=== PATIENT | male | born 1950 ===

== ENCOUNTER 2024-05-28 13:28 | Outpatient (RCR) | payer MEDICARE, SELFPAY | END 2024-06-15 23:59 | disposition home or self-care (01) | LOC: CR 13:28 | PROVIDERS: Visit Provider Internal Medicine Cardiovascular Disease ==

== ENCOUNTER 2024-07-20 11:00 | Outpatient (RCR) | payer MEDICARE, SELFPAY ==
--- NOTE | 2024-07-20 10:45 | RT.EKG_ITS ---
APPROVED REPORT Exam: Resting ECG Reason for Exam: Baseline Patient Location: O HR:77 bpm ECG Measurements Heart Rate 77 AXIS OR 196 P 45 QRSd 97 QRS 3 QT 378 T 6 QTc 428 Conclusion Sinus rhythm...normal P axis, V-rate 50- 99 Normal Electrocardiogram
== END 2024-08-13 23:59 | disposition home or self-care (01) ==
LOC: CR 11:00
PROVIDERS: Visit Provider Internal Medicine Cardiovascular Disease
DX: I21.4 Non-ST elevation (NSTEMI) myocardial infarction (principal); E11.9 Type 2 diabetes mellitus without complications; Z51.89 Encounter for other specified aftercare
CPT/HCPCS: S9472

== ENCOUNTER 2024-08-13 13:12 | Outpatient (RCR) | payer MEDICARE, SELFPAY | END 2024-08-13 23:59 | disposition home or self-care (01) | LOC: CR 13:12 | PROVIDERS: Visit Provider Internal Medicine Cardiovascular Disease | DX: I21.4 Non-ST elevation (NSTEMI) myocardial infarction (principal); E11.9 Type 2 diabetes mellitus without complications; Z51.89 Encounter for other specified aftercare | CPT/HCPCS: S9472 ==